=== PATIENT | male | born 1990 | race African-American/Black ===

== ENCOUNTER 2017-03-17 02:35 | Emergency (ER) | payer OTHER ==
[~2017-03-17] VITALS: Ht 190.5 cm; Wt 90.7 kg
[2017-03-17 02:37] VITALS: BP 127/50
[2017-03-17] MEDS ORDERED: NAPROSYN500 MG PO (04:11)
[2017-03-17] MEDS ORDERED: ROBAXIN500 MG PO (04:11)
== END 2017-03-17 04:48 | disposition home or self-care (01) ==
LOC: ER 02:35
DX: S16.1XXA Strain of muscle, fascia and tendon at neck level, initial encounter (principal); G44.209 Tension-type headache, unspecified, not intractable; F10.99 Alcohol use, unspecified with unspecified alcohol-induced disorder; V47.6XXA Car passenger injured in collision with fixed or stationary object in traffic accident, initial encounter; Y93.89 Activity, other specified; Y92.89 Other specified places as the place of occurrence of the external cause; Y99.8 Other external cause status

== ENCOUNTER 2017-12-08 15:57 | Emergency (ER) | payer OTHER ==
[~2017-12-08] VITALS: Ht 182.9 cm; Wt 74.8 kg
[~2017-12-08 15:57] MED LIST: NAPROSYN500 MG PO; ROBAXIN500 MG PO
[2017-12-08 17:12] LABS: URINE BILIRUBIN NEGATIVE (Negative); URINE BLOOD NEGATIVE (Negative); URINE CLARITY CLEAR; URINE COLOR YELLOW; URINE GLUCOSE-RANDOM* NEGATIVE (Negative); URINE KETONES NEGATIVE (Negative); URINE LEUKOCYTES-REFLEX NEGATIVE (Negative); URINE NITRITE-REFLEX NEGATIVE (Negative); URINE PROTEIN (DIPSTICK) NEGATIVE (Negative); URINE SPECIFIC GRAVITY <= 1.005 (1.005-1.035); URINE UROBILINOGEN 0.2 E.U./dl (0.2-1.0)
[2017-12-08 18:01] VITALS: BP 120/73
== END 2017-12-08 18:05 | disposition home or self-care (01) ==
LOC: ER 15:57
PROVIDERS: Emergency Medicine
DX: R10.30 Lower abdominal pain, unspecified (principal); R30.0 Dysuria